=== PATIENT | female | born 1985 | race Caucasian/White ===

== ENCOUNTER 2016-08-24 21:26 | Emergency (ER) | payer SELFPAY ==
[~2016-08-24] VITALS: Ht 162.6 cm; Wt 78.0 kg
[2016-08-24 21:31] VITALS: Ht 162.6 cm; Wt 78.0 kg
== END 2016-08-24 22:13 | disposition left against medical advice (07) ==
LOC: FTE 21:26
DX: Z53.21 Procedure and treatment not carried out due to patient leaving prior to being seen by health care provider (principal)